=== PATIENT | male | born 1980 | race African-American/Black ===

== ENCOUNTER 2019-11-19 01:45 | Day surgery (SDC) | payer OTHER, SELFPAY ==
[2019-11-05 10:39] VITALS: BMI 22.3
--- NOTE | 2019-11-18 12:42 | HP_ITS ---
DATE OF SERVICE: 11/19/2019 PREOPERATIVE DIAGNOSIS: Right ulnar neuropathy at the elbow. HISTORY: This is a 38-year-old male with complaints in the right upper extremity only that he has had symptoms for over 3 months. It involves tingling in the ulnar digit and half that has gradually progressed to numbness. He says it is constant now. He may have a burning pain along the medial forearm extending toward his elbow. He drops things. 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 His hand cramps from time to time. He has trouble cutting his hair. 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 A nerve conduction test was done on September 23, 2019. This indicates right ulnar neuropathy at the elbow. We elected to proceed with surgery for this. He understands the risks are those of anesthesia, bruising, infection, dehiscence, slow or failed recovery of premorbid condition, focal numbness, and possible need for recurrent surgery. He would like to proceed with this. MEDICATIONS: Currently takes some Advil as his only medication. ALLERGIES: HE LISTS NO ALLERGIES TO MEDICATION. PAST SURGICAL HISTORY: He has had no prior surgeries. He does not see another specialist. He is a nonsmoker. REVIEW OF SYSTEMS: Indicates he has some arthritis, pain, and glaucoma. FAMILY HISTORY: Noncontributory. SOCIAL HISTORY: Lives in [place]. Does not list employment. He is a patient of [facility]. PHYSICAL EXAMINATION: GENERAL: He is alert, cooperative adult male. VITAL SIGNS: He is 5'11 , 158 pounds, in no distress. HEENT: Unremarkable. CHEST: Clear to auscultation. HEART: Regular rate and rhythm by palpation. ABDOMEN: Soft, nontender. EXTREMITY: Exam reveals findings only in the right side, which reveal Tinel's at the elbow with very muscular condition in that region. Also thenar wasting on the right and Tinel's at the wrist. He has no trouble flexing his right thumb across the palm and they mention thenar wasting. ASSESSMENT: Right cubital tunnel syndrome. PLAN: Right ulnar neuroplasty at the elbow under MAC anesthetic. D I MT: Lila
[2019-11-19] MEDS: LACTATED RINGERS 1,000 ML 30 ML IV CONT ×2 (07:05→08:45)
--- NOTE | 2019-11-19 07:07 | WPDANESEPPF ---
Anes - Initial Pre Proc Eval Procedure: Operation Date: 11/19/19 07:30 Proposed Procedures p Right Ulnar Neuroplasty - Gerald Carroll MD Date/Time: 11/19/19 07:07 Surgeon: Gerald Carroll MD Pre Op Diagnosis: Right Ulnar Neuropathy Patient Data Age: 38 Gender: M Height: 5 ft 11 in Weight: 72.57 kg Allergies Allergy/AdvReac Type Severity Reaction Status Date / Time No Known Allergies Allergy Verified 11/05/19 10:41 Home Medications Medication Instructions Recorded Confirmed Type cyanocobalamin (vitamin B-12) 1,000 mcg PO DAILY 11/05/19 11/05/19 History [Vitamin B-12] multivitamin 1 tablet PO DAILY 11/05/19 11/05/19 History Patient hx anesthesia problems: none Family hx anesthesia problems: none PMFSH Past Medical History Medical History (Updated 11/19/19 @ 07:07 by Magdaleno Mathias MD) Arthritis Family History Family History (Updated 04/11/19 @ 15:45 by DOCTOR UNKNOWN) Other Diabetes mellitus Family history of arthritis Hypertension Social History Social History Smoking status: Never smoker Alcohol intake: current Substance use: current Substance use type: marijuana Anes - Eval Final PreProcedure Day of Procedure 11/19/19 07:07 Patient weight: normal Heart: regular rate and rhythm Lungs: clear to auscultation Airway: Mallampati scale class II Neurological: alert and oriented Last oral intake: >/= 8 hours ASA classification: II Emergent: no Anesthetic plan: proceed Anesthesia type and monitoring: general GIVS and standard monitoring Informed Consent: The patient's anesthetic plan and its attendant risks and benefits were discussed with the patient/family/POA. Questions were solicited and answers provided to the satisfaction of the patient/family/POA.
--- NOTE | 2019-11-19 07:21 | WPDHPUPDATE1 ---
History and Physical Update Update Date/Time: 11/19/19 07:21 History and Physical has been reviewed, including an updated exam of the patient. There are NO changes in the patient's condition. Risks, benefits, and alternatives have been discussed and questions answered. Patient agrees to proceed with procedure.
[2019-11-19 07:26] VITALS: BP 103/62; PULSE 82; RESP 20; TEMP 36.9; O2SAT 100
[2019-11-19] MEDS: BACITRACIN OINTMENT 15 GM TUBE 1 APPLIC TOPICAL (07:54)
[2019-11-19] MEDS: LIDO 1%/EPINEPHRINE 1:100,000 20 ML VIAL INFILTRATE (07:54)
--- NOTE | 2019-11-19 08:42 | P.OPB_ITS ---
Procedure Note - Brief Procedure Note - Brief Date of procedure: 11/19/19 Pre-op diagnosis: Right Ulnar Neuropathy Post-op diagnosis: same Procedure performed: Right ulnar neuroplasty wtih subcutaneous transposition. Incidental excisional biopsy of osteochondral body, 7x5x 4 mm. Anesthesia: MAC Surgeon: Gerald Carroll MD Supervisor Fabrication: Kimberley Estimated blood loss (mL): 3 Tourniquet time (min): 50 Drains: No Packing: No Pathology: yes Complications: No immediate complications Condition: stable Disposition: same day
[2019-11-19 08:45] VITALS: BP 116/47; PULSE 84; RESP 16; O2SAT 100
--- NOTE | 2019-11-19 09:01 | PM.PROC ---
Procedure Note - Detailed Date of procedure: 11/19/19 Pre-op diagnosis: Right Ulnar Neuropathy Post-op diagnosis: same (Anterior subluxation of nerve. Osteochondral body.) Procedure performed: Right subcutaneous transposition of the ulnar nerve. Incidental removal of osteochondral body. Description of procedure: The patient's site of concern was marked in preop. He was rolled to the operative room placed supine on the operating table a time-out was held and confirmed he was given IV sedation extremity was prepped and draped in usual fashion. The marking was reconfirmed on his elbow and locally infiltrated with 1% lidocaine with epinephrine. The olecranon and the prominence opposite that were marked and the course of the ulnar nerve marked between those. The tourniquet was inflated to 250 mmHg. The elbow was flexed and supported on folded towels. The incision was made as marked and dissection was carried out between these 2 prominences over the course of the ulnar nerve. It was then that I discovered the medial epicondyle actually was about 5 cm proximal to the site marked. The marked site for medial epicondyle turned out to be an osteophyte approximately 5 x 7 x 4 mm. This indeed was smaller than the average medial epicondyle however this gentleman is very thin and long and it did not seem unusual initially. We eventually removed this osteochondral body and it was sent for pathology. The incision was extended proximally. Allowing dissection posterior to the medial epicondyle to identify the nerve a relatively normal position. The nerve had been identified as it entered the flexor muscle fascia and more distally but seemed to run at an odd angle at that point. The dissection continued as usual exposing the nerve over at least a 6 cm length. The area of most compression appeared to be just posterior to the true medial epicondyle as usual. The nerve readily subluxed out of its groove riding upon the medial epicondyle. With that we elected to transpose it. A fascial flap was developed off the medial epicondyle to support that. The nerve and some vascular structures were isolated and this tissue was moved anteriorly. It was held into position with 3-0 Monocryl sutures and a couple of sites which did not seem to compress upon the nerve. The nerve did not seem to be unduly compressed by passive motion of the elbow and we were satisfied by its new position. Multiple bleeding sites were coagulated on 20. The wound was closed with intradermal 3-0 Monocryl a cross hatching odonnell in a running intradermal 3-0 Monocryl to close the skin. The usual bandage was applied. No antibiotics were utilized for this case. The patient will be prescribed some hydrocodone 02/21/2025 for home use. Surgeon: Gerald Carroll MD
[2019-11-19 09:15] VITALS: BP 109/56; PULSE 82; RESP 16; O2SAT 100
[2019-11-19 09:35] VITALS: BP 109/70; PULSE 55; RESP 16
== END 2019-11-19 09:45 | disposition home or self-care (01) ==
PROVIDERS: PCP Emergency Medicine; Visit Provider Plastic Surgery
PROC: (CPT 64718; principal; 2019-11-19 07:30)
DX: G56.21 Lesion of ulnar nerve, right upper limb (principal); M25.721 Osteophyte, right elbow; M19.90 Unspecified osteoarthritis, unspecified site; H40.9 Unspecified glaucoma; F12.90 Cannabis use, unspecified, uncomplicated
CPT/HCPCS: 64718; 24110; 88307; A9270; J2250; J2704; J3010; J7120

== ENCOUNTER 2024-01-22 09:30 | Outpatient (RCR) | payer OTHER, SELFPAY ==
--- NOTE | 2023-11-19 14:13 | OPREHPOC ---
Outpatient Therapy Plan of Care This is a Multidisciplinary Plan of Care that may contain components documented by all disciplines (PT, OT, and ST.) PT Problem 1 PT Problem #1 Knowledge Deficit PT Goal 1 Goal 1* indep with HEP and instruction to others for how to assist him PT Problem 2 PT Problem #2 Pain PT Goal 1 Goal * pain in legs 5/10 at worst PT Problem 3 PT Problem #3 Impaired Functional Mobil PT Goal 1 Goal 1* pt transfer supine/sit indep 2* pt transfer w/c <> mat indep with sliding board PT Problem 4 PT Problem #4 Impaired Strength PT Goal 1 Goal increase strength of trunk, pt able to perform 1* pt sit at edge of mat, without UE support, unchallenged x 5 minutes 2* pt able to tolerate standing upright with the stander x 10 minute tolerance 3* 

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
--- NOTE | 2023-11-19 15:12 | PCPTNOTE ---
pt was 15 minutes late for PT eval appt.
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
--- NOTE | 2023-11-21 15:14 | OPREHPOC ---
Outpatient Therapy Plan of Care This is a Multidisciplinary Plan of Care that may contain components documented by all disciplines (PT, OT, and ST.) PT Problem 1 PT Problem #1 Knowledge Deficit PT Goal 1 Goal 1* indep with HEP and instruction to others for how to assist him PT Problem 2 PT Problem #2 Pain PT Goal 1 Goal * pain in legs 5/10 at worst PT Problem 3 PT Problem #3 Impaired Functional Mobil PT Goal 1 Goal 1* pt transfer supine/sit indep 2* pt transfer w/c <> mat indep with sliding board PT Problem 4 PT Problem #4 Impaired Strength PT Goal 1 Goal increase strength of trunk, pt able to perform 1* pt sit at edge of mat, without UE support, unchallenged x 5 minutes 2* pt able to tolerate standing upright with the stander x 10 minute tolerance 3* 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 Patient to be independent with instructed materials. Target Visit 10 OT Problem 2 OT Problem #2 Pain OT Goal 1 Goal 1. Patient to be independent with non-medication pain management. Target Visit 10 OT Problem 3 OT Problem #3 Impaired Strength OT Goal 1 Goal 1. Increase (R) shoulder strength to 3+/5 in all directions. 2. Increase (R) marketing support specialist strength to 80 lbs. Target Visit 10
--- NOTE | 2023-12-18 10:49 | OPREHPOC ---
Outpatient Therapy Plan of Care This is a Multidisciplinary Plan of Care that may contain components documented by all disciplines (PT, OT, and ST.) PT Problem 1 PT Problem #1 Knowledge Deficit PT Goal 1 Goal 1* indep with HEP and instruction to others for how to assist him Progress Met Comment 12-18-23 progress met goal; continue towards goal to progress education PT Problem 2 PT Problem #2 Pain PT Goal 1 Goal * pain in legs 5/10 at worst Progress Not Met Comment 12-18-23 progress goal not met, pain 6/10 at worst continue towards goal PT Problem 3 PT Problem #3 Impaired Functional Mobil PT Goal 1 Goal 1* pt transfer supine/sit indep 2* pt transfer w/c <> mat indep with sliding board Progress Partially Met Comment 12-18-23 progress met goal 2 continue towards goals PT Problem 4 PT Problem #4 Impaired Strength PT Goal 1 Goal increase strength of trunk, pt able to perform 1* pt sit at edge of mat, without UE support, unchallenged x 5 minutes 2* pt able to tolerate standing upright with the stander x 10 minute tolerance 3* 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 Patient to be independent with instructed materials. Target Visit 10 OT Problem 2 OT Problem #2 Pain OT Goal 1 Goal 1. Patient to be independent with non-medication pain management. Target Visit 10
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
--- NOTE | 2023-12-18 10:56 | PCPTNOTE ---
pt was 10 minutes late for today's appt;
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
== END 2024-02-01 10:11 | disposition home or self-care (01) ==
LOC: ANHPT 09:30
PROVIDERS: PCP Emergency Medicine
DX: S24.15 Other incomplete lesions of thoracic spinal cord (principal); S32.019D Unspecified fracture of first lumbar vertebra, subsequent encounter for fracture with routine healing
CPT/HCPCS: 97110; 97112; 97161; 97165; 97530

== ENCOUNTER 2024-05-02 08:00 | Outpatient (RCR) | payer OTHER, SELFPAY ==
--- NOTE | 2024-02-13 14:53 | OPREHPOC ---
Outpatient Therapy Plan of Care This is a Multidisciplinary Plan of Care that may contain components documented by all disciplines (PT, OT, and ST.) PT Problem 1 PT Problem #1 Knowledge Deficit PT Goal 1 Goal Pt will demonstrate HEPs indep Target Visit 4 PT Problem 2 PT Problem #2 Pain PT Goal 1 Goal Pt will report reduced pain level to 3/10 at worst or during movement in order to perform UE mobility without discomfort. Target Visit 12 PT Problem 3 PT Problem #3 Impaired Range of Motion PT Goal 1 Goal Pt will demonstrate R shoulder WFL ROM (120? of forward elevation, 45? of extension, 130? of abduction, 115? of cross-body adduction, 60? of external rotation, and 100? of internal rotation) in order to perform ADLs indep. PT Problem 4 PT Problem #4 Impaired Strength PT Goal 1 Goal Pt will demonstrate 5/5 RUE strength grossly. Target Visit 12 PT Goal 2 Goal Pt will demonstrate 4/5 abdominal and trunk muscle strength to improve balance and stability Target Visit 12
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
--- NOTE | 2024-02-18 11:20 | PCPTNOTE ---
pt called to say that he was in a court hearing, unable to attend therapy session on this date.
--- NOTE | 2024-03-20 10:34 | PTOPPROG ---
Assessment and note entered by Frank Stevens Evaluation Information Assessment Status Progress Diagnosis right shoulder pain and immobility, s/p rotator cuff repair Onset 01/24/24 Subjective Information Pt. reports that he still has varying pain in the right shoulder. He states that he is lifting the right arm higher, but still notices stiffness with overhead activities. 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 He states that his goal remains to improve his shoulder strength and mobility. Assessment PT Clinical Summary Pt. has demonstrated progress in regards to strength and mobility at the right shoulder. Despite progress he continues to be limited in strength and ROM. 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 Plan of Care Interventions Hot Pack/Cold Pack,Manual Therapy,Neuro Re- education,Patient/Caregiver Educati,Therapeutic Activities,Therapeutic Exercise PT Services Indicated Yes Treatment Frequency and Continue treatment 2x/week x 10 visits Duration These treatments will address the objective and functional deficits as defined above. The patient will be advanced safely and appropriately in order for the patient to progress towards his/her prior level of function. Additional exercises will be introduced and as well as a comprehensive home exercise program upon discharge, if needed, ?to ensure carryover of functional gains achieved in the clinic. This treatment plan has been reviewed and agreement upon by the patient.
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
[2024-04-29 08:00] VITALS: BP_SYST 145
--- NOTE | 2024-04-29 09:42 | OPREHPOC ---
Outpatient Therapy Plan of Care This is a Multidisciplinary Plan of Care that may contain components documented by all disciplines (PT, OT, and ST.) PT Problem 1 PT Problem #1 Knowledge Deficit PT Goal 1 Goal Pt will demonstrate HEPs indep Target Visit 4 Progress Met PT Goal 2 Goal 04-29-24: EVAL paraplegia/progress R shoulder goal met continue to progress HEP and education Target Visit 30 PT Problem 2 PT Problem #2 Pain PT Goal 1 Goal Pt will report reduced pain level to 3/10 at worst or during movement in order to perform UE mobility without discomfort. Target Visit 20 Progress Not Met PT Goal 2 Goal 04-29-24: EVAL paraplegia/progress R shoulder goal not met continue towards goal-- ADD: monitor LE pain/spasms as progress treatment Target Visit 30 PT Problem 3 PT Problem #3 Impaired Range of Motion PT Goal 1 Goal Pt will demonstrate R shoulder WFL ROM (120? of forward elevation, 45? of extension, 130? of abduction, 115? of cross-body adduction, 60? of external rotation, and 100? of internal rotation) in order to perform ADLs indep. Target Visit 20 Progress Not Met Comment Met passively, but not actively PT Goal 2 Goal 04-29-24: EVAL paraplegia/progress R shoulder goal partially met--passive motion shoulder NEW GOAL: 1* R shoulder ER- reach towards back of head, palm to back of head Target Visit 30 PT Problem 4 PT Problem #4 Impaired Strength PT Goal 1 Goal Pt will demonstrate 5/5 RUE strength grossly. Target Visit 20 PT Goal 2 Goal Pt will demonstrate 4/5 abdominal and trunk muscle strength to improve balance and stability Target Visit 20 Progress Partially Met Comment
--- NOTE | 2024-04-29 09:42 | PTOPEVAL1 ---
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; saw shoulder dr few weeks ago--said no restrictions, keep doing therapy and was surprised at how well I was doing; have been doing all the arm exercises; to get new wheelchair by the end of the month: to have electronic larger front wheels to be able to go outside and also able to stand up with it; want to keep up with therapy for shoulder and legs 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; 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/ 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 to 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 child PAIN: R shoulder: range in the week: 0-5/10: ache pinch at top of shoulder increase pain: use of R arm, hold arm up and rotate decrease pain: tylenol, aleve, rest,heat have not been using ice- instruct on PRN use of ice, especially if swollen wake up from sleeping 3-4 x/night due to shoulder pain Reported Pain Level Pain Score 4: Self Report Additional Pain Score Comments PAIN: R shoulder: range in the week: 0-5/10: ache pinch at top of shoulder increase pain: use of R arm, hold arm up and rotate decrease pain: tylenol, aleve, rest,heat have not been using ice- instruct on PRN use of ice, especially if swollen also have muscle spasms and tightness of hips Assessment PT Clinical Summary Vianey has received 20 PT sessions s/p R shoulder surgery. This is progress report for R shoulder and EVALUATION for new order--paraplegia. He had received treatment here for paraplegia prior to the shoulder surgery. R shoulder progress: pain has decreased from 6/10 to 0- 5/10; continues to have pain in shoulder with sleeping, awaken 3-4x/night; increase shoulder ROM and strength in all directions;
--- NOTE | 2024-05-05 12:02 | PCPTNOTE ---
This treatment is being continued on visit number [id number]. Please see documentation on both accounts to view progress. Completed interventions, outcomes, and problems have been marked as Inactive to facilitate the copying of the Care plan routine for recurring accounts.
== END 2024-05-05 11:02 | disposition home or self-care (01) ==
LOC: ANHPT 08:00
PROVIDERS: PCP Emergency Medicine; Visit Provider Orthopaedic Surgery Sports Medicine
DX: Z48.89 Encounter for other specified surgical aftercare (principal); M75.101 Unspecified rotator cuff tear or rupture of right shoulder, not specified as traumatic; Z98.890 Other specified postprocedural states
CPT/HCPCS: 97014; 97110; 97112; 97140; 97161; 97162; 97165; 97530; G0283

== ENCOUNTER 2024-07-29 08:00 | Outpatient (RCR) | payer OTHER, SELFPAY ==
[2024-05-05 11:02] VITALS: BP_SYST 145
--- NOTE | 2024-05-05 12:03 | PCPTNOTE ---
This treatment is being continued from visit number [id number]. Please see documentation on both accounts to view progress. Completed interventions, outcomes, and problems have been marked as Inactive to facilitate the copying of the Care plan routine for recurring accounts.
--- NOTE | 2024-06-12 09:50 | PTOPPROG ---
Assessment and note entered by Antonia Hurst, PT Progress Report Assessment Status Progress Diagnosis paraplegia G82.20; R rotator cuff tear M 75.101 Other ICD-10 Condition Codes ( paraplegia G82.20; R rotator cuff tear M 75.101 PT) Onset 01/24/24 Subjective Information have improved with strength, able to do more at home--wash dishes, shower without help, is cooking cleaning at home; using manual w/c; to get leg braces at [employer]---have been fitted by not yet have, not sure when will get them; saw shoulder and he is happy with how his shoulder is doing; see neuro in October; PAIN: range in the past week 0-02/28 R shoulder-- popping, clicking; tightness in both hips- spasms with extending hips and knees Assessment PT Clinical Summary Vianey has received 32 PT sessions. 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 He has been fitted for LE braces and is awaiting a new w/c with ability to stand with it. He remains very motivated, working at home on his exercises and during PT sessions. At home, he is more indep with self care and home activities. The goals were achieved except tall kneel position holding with 1 UE--requires bilateral UE support. Continue PT--progress activity and strength of LE's and R UE, to improve his mobility. Plan of Care Interventions Gait Training,Manual Therapy,Neuro Re-education, Patient/Caregiver Education,Therapeutic Activities, Therapeutic Exercise PT Services Indicated Yes Treatment Frequency and 2x/wk for 10 visits Duration These treatments will address the objective and functional deficits as defined above. The patient will be advanced safely and appropriately in order for the patient to progress towards his/her prior level of function. Additional exercises will be introduced and as well as a comprehensive home exercise program upon discharge, if needed, ?to ensure carryover of functional gains achieved in the clinic. This treatment plan has been reviewed and agreement upon by the patient.
--- NOTE | 2024-06-12 09:51 | OPREHPOC ---
Outpatient Therapy Plan of Care This is a Multidisciplinary Plan of Care that may contain components documented by all disciplines (PT, OT, and ST.) PT Problem 1 PT Problem #1 Knowledge Deficit PT Goal 1 Goal / Goal Update Pt will demonstrate HEPs indep Target Visit 4 Progress Met PT Goal 2 Goal / Goal Update 04-29-24: EVAL paraplegia/progress R shoulder goal met continue to progress HEP and education 06-12-24 progress met goals continue towards education goal TARGET 42 visits Target Visit 42 PT Problem 2 PT Problem #2 Pain PT Goal 1 Goal / Goal Update Pt will report reduced pain level to 3/10 at worst or during movement in order to perform UE mobility without discomfort. Target Visit 20 Progress Not Met PT Goal 2 Goal / Goal Update 04-29-24: EVAL paraplegia/progress R shoulder goal not met continue towards goal-- ADD: monitor LE pain/spasms as progress treatment 06-12-24 progress met goal continue towards goal of monitoring pain TARGET 42 visits Target Visit 42 PT Problem 3 PT Problem #3 Impaired Range of Motion PT Goal 1 Goal / Goal Update Pt will demonstrate R shoulder WFL ROM (120? of forward elevation, 45? of extension, 130? of abduction, 115? of cross-body adduction, 60? of external rotation, and 100? of internal rotation) in order to perform ADLs indep. Target Visit 20 Progress Not Met PT Goal 2 Goal / Goal Update 04-29-24: EVAL paraplegia/progress R shoulder goal partially met--passive motion shoulder NEW GOAL: 1* R shoulder ER- reach towards back of head, palm to back of head 06-12-24 progress
--- NOTE | 2024-07-17 09:36 | PTOPPROG ---
Assessment and note entered by [facility] Evaluation Information Assessment Status Progress Diagnosis paraplegia G82.20, R rotator cuff tear M75.101 Other ICD-10 Condition Codes ( paraplegia G82.20; R rotator cuff tear M 75.101 PT) Onset 01/24/24 Subjective Information Pt. reports that he is pleased with his progress. He notes that the right shoulder is getting stronger and he is noticing improved endurance. 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 He states that he still does not have the endurance to be able to hold the right arm in front of himself long enough to be able to do his job thoroughly. He has also noted that with use of the Lite Gait he is able to walk. He is noticing improved movements in the l.e., however still cannot stand without assist. He states that he is fearful of regression if therapy is discontinued. 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 Assessment PT Clinical Summary Mr. Aponte has attended a total of 39 skilled therapy sessions. In this time we have noted improved strength and mobility of the right u.e. He also demonstrates improved endurance with use of the Lite Gait system, as noted by ability to tolerate a further distance with gait training activities. He continues to present with 34% deficit according to the Quick D[employer]. 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 He continues to progress and has indications that he can return to his prior occupation with the correct adaptive equipment. Skilled PT sessions have also provided the pt. with the opportunity to initiate gait training procedures due to use of equipment that the pt. does not have access to at home. He remains motivated and demonstrates consistent attendance with his rehab. 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 endurance and strength. We will continue use of assistive equipment to stimulate standing endurance and continue to attempt gait training techniques, as well as to provide pressure relief. Goals this date adjusted to focus
--- NOTE | 2024-07-22 08:34 | PCPTNOTE ---
Pt NS due to confusion with dates.
--- NOTE | 2024-07-31 07:45 | PCPTNOTE ---
This treatment is being continued on visit number [id number]. Please see documentation on both accounts to view progress. Completed interventions, outcomes, and problems have been marked as Inactive to facilitate the copying of the Care plan routine for recurring accounts.
== END 2024-07-30 14:18 | disposition home or self-care (01) ==
LOC: ANHPT 08:00
PROVIDERS: PCP Emergency Medicine; Visit Provider Orthopaedic Surgery Sports Medicine
DX: M75.101 Unspecified rotator cuff tear or rupture of right shoulder, not specified as traumatic (principal); G82.20 Paraplegia, unspecified; Z48.89 Encounter for other specified surgical aftercare; Z98.890 Other specified postprocedural states
CPT/HCPCS: 97110; 97112; 97116; 97140; 97530

== ENCOUNTER 2024-08-21 09:30 | Outpatient (RCR) | payer OTHER, SELFPAY ==
[2024-07-30 14:18] VITALS: BP_SYST 145
--- NOTE | 2024-07-31 07:46 | PCPTNOTE ---
This treatment is being continued on visit number [id number]. Please see documentation on both accounts to view progress. Completed interventions, outcomes, and problems have been marked as Inactive to facilitate the copying of the Care plan routine for recurring accounts.
--- NOTE | 2024-08-21 16:27 | PTOPDC ---
Assessment and note entered by Yassine Pfeiffer, PT Evaluation Information Assessment Status Discharge Diagnosis paraplegia G82.20, R rotator cuff tear M75.101 Other ICD-10 Condition Codes ( paraplegia G82.20; R rotator cuff tear M 75.101 PT) Onset 01/24/24 Subjective Information Patient reports that he was finally custom fit for hi new comprehensive hip and leg brace last week. He was able to work with it a bit this week, but as of now the plan is to return to the [facility] to perform custom work with addition of new ambulatory brace. He will be staying there for approximately 1 week. He has been doing regular skin integument checks to ensure that brace is not rubbing at this time. He is excited about this new device and is very optimistic that he will be able to ambulate with modified independence in near future. Reported Pain Level Pain Score 0: Self Report Additional Pain Score Comments 10/31 shoulder pain Assessment PT Clinical Summary Mr. Aponte has made remarkable progress to this point with therapy. He has transitioned from bed transfer limitations to assisted standing to independent standing over the course of the last few months. With new abdominal/leg brace he shows continued potential to progress to modified independent standing and ambulation. Patient will be taking a transition to skilled rehab to ensure proper use and fitting of brace upon which the plan will be to return to skilled outpatient therapy to continue care. Plan of Care PT Services Indicated Yes
== END 2024-08-21 17:17 | disposition home or self-care (01) ==
LOC: ANHPT 09:30
PROVIDERS: PCP Emergency Medicine; Visit Provider Orthopaedic Surgery Sports Medicine
DX: M75.101 Unspecified rotator cuff tear or rupture of right shoulder, not specified as traumatic (principal); G82.20 Paraplegia, unspecified; Z48.89 Encounter for other specified surgical aftercare; Z98.890 Other specified postprocedural states
CPT/HCPCS: 97110; 97116; 97140; 97530

== ENCOUNTER 2024-12-17 08:15 | Outpatient (RCR) | payer OTHER, SELFPAY ==
--- NOTE | 2024-09-22 17:28 | OPREHPOC ---
Outpatient Therapy Plan of Care This is a Multidisciplinary Plan of Care that may contain components documented by all disciplines (PT, OT, and ST.) PT Problem 1 PT Problem #1 Knowledge Deficit PT Goal 1 Goal / Goal Update [place] with HEP PT Goal 1 Goal / Goal Update Patient will demonstrate ability to fully don and doff abdominal and leg orthotic for independent use and training Target Visit 10 PT Goal 2 Goal / Goal Update Patient will improve Tinetti score by 5 point with use of david UEs to transition to use of 2 wheeled walker Target Visit 10 PT Problem 3 PT Problem #3 Impaired Functional Mobil PT Goal 1 Goal / Goal Update Patient will demonstrate ability to transfer 20' with 2 wheeled walker and SBA from therapy to improve short range modified independence with ambulation Target Visit 10 PT Goal 2 Goal / Goal Update 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
--- NOTE | 2024-09-22 17:28 | PTOPEVAL1 ---
Assessment and note entered by Yassine Pfeiffer, PT Evaluation Information Assessment Status Evaluation Diagnosis G82.2 ICD-10 Condition Codes (PT) Difficulty Walking R26.2,Weakness R53.1 Subjective Information Reports that he was supposed to be going through inpatient stay for gait training in new prosthetic device. He has been trying to stay active in home and is worried if he lost a step in his rehab. As of now some pain with arm flexion and reaching behind head and feels that his shoulder is moving better but he is having trouble using it in combination with his standing device and brace. 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 Reported Pain Level Pain Score 3: Self Report Assessment PT Clinical Summary Patient presents with balance and transfer deficits with newly acquired trunk and leg orthotic. New bracing has given patient opportunity to continue to progress functional mobility and work towards modified independent gait training at this time. Patient was expected to spend time at [facility] for orthotic training but was denied by insurance per report. This has left him with continued need for training and functional improvement to improve transfers, gait, and work related function given his diagnosis of paraplegia limiting these activities. Continues to show lingering functional deficits in dominant shoulder which will need to be improved coupled with functional training of standing activity to return to wrok related duties. Plan of Care Interventions Gait Training,Manual Therapy,Neuro Re-education, Therapeutic Activities,Therapeutic Exercise PT Services Indicated Yes Treatment Frequency and 2x/week for 10 visits Duration These treatments will address the objective and functional deficits as defined above. The patient will be advanced safely and appropriately in order for the patient to progress towards his/her prior level of function. Additional exercises will be introduced and as well as a comprehensive home exercise program upon discharge, if needed, ?to ensure carryover of functional gains achieved in the clinic. This treatment plan has been reviewed and agreement upon by the patient.
--- NOTE | 2024-10-23 08:40 | PCPTNOTE ---
Pt no called no showed his appointment today.
--- NOTE | 2024-11-06 09:34 | PTOPEVAL1 ---
Assessment and note entered by Yassine Pfeiffer, PT Evaluation Information Assessment Status Progress Diagnosis G82.2 ICD-10 Condition Codes (PT) Difficulty Walking R26.2,Weakness R53.1 Subjective Information Reports that he is currently wearing his brace for about 2 hours at a time at home. He has been very motivated and has been trying to do it as frequently as possible. He was able to stand at the sink and wash dishes for the first time yesterday. Has been able to don and doff brace with modified independence including his shoes. He has been attempting more ambulation in home with 2 wheeled walker at this time. He has history of difficulty with locking out left knee in brace still at times. He gets a lot of fatigue through his shoulder with walking due to heavy use of arms and support. 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 He continues to rely very heavily on shoulders including surgically repaired shoulder leading to mild pain following functional activity. Patient gait speed and stability was analyzed today with use of both 6 and 2 minute walk test. Notable loss in gait speed noted between 2 indicating continued need for functional conditioning and neuromuscular facilitation of core for foot progression. Will continue to benefit from skilled therapy to address these established and updated goals. Plan of Care Interventions Gait Training,Manual Therapy,Neuro Re-education, Therapeutic Activities,Therapeutic Exercise PT Services Indicated Yes Treatment Frequency and 2x/week for 8 visits Duration These treatments will address the objective and functional deficits as defined above. The patient will be advanced safely and appropriately in order for the patient to progress towards his/her prior level of function. Additional exercises will be introduced and as well as a comprehensive home exercise program upon discharge, if needed, ?to ensure carryover of functional gains achieved in the clinic. This treatment plan has been reviewed and agreement upon by the patient.
--- NOTE | 2024-11-06 09:34 | OPREHPOC ---
Outpatient Therapy Plan of Care This is a Multidisciplinary Plan of Care that may contain components documented by all disciplines (PT, OT, and ST.) PT Problem 1 PT Problem #1 Knowledge Deficit PT Goal 1 Goal / Goal Update [place] with HEP Progress Met PT Goal 1 Goal / Goal Update Patient will demonstrate ability to fully don and doff abdominal and leg orthotic for independent use and training -With modified independence he is capable Target Visit 10 Progress Met PT Goal 2 Goal / Goal Update Patient will improve Tinetti score by 5 point with use of david UEs to transition to use of 2 wheeled walker Target Visit 18 Progress Partially Met PT Problem 3 PT Problem #3 Impaired Functional Mobility PT Goal 1 Goal / Goal Update Patient will demonstrate ability to transfer 20' with 2 wheeled walker and SBA from therapy to improve short range modified independence with ambulation Target Visit 10 Progress Met PT Goal 2 Goal / Goal Update Patient will demonstrate 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 Target Visit 18
--- NOTE | 2024-11-06 09:39 | PTOPPROG ---
Assessment and note entered by Yassine Pfeiffer, PT Evaluation Information Assessment Status Progress Diagnosis G82.2 ICD-10 Condition Codes (PT) Difficulty Walking R26.2,Weakness R53.1 Subjective Information Reports that he is currently wearing his brace for about 2 hours at a time at home. He has been very motivated and has been trying to do it as frequently as possible. He was able to stand at the sink and wash dishes for the first time yesterday. Has been able to don and doff brace with modified independence including his shoes. He has been attempting more ambulation in home with 2 wheeled walker at this time. He has history of difficulty with locking out left knee in brace still at times. He gets a lot of fatigue through his shoulder with walking due to heavy use of arms and support. Assessment PT Clinical Summary Patient has made phenomenal progress with use of total lower body brace and his transition towards the rn long term care goal of modified independence with transfer and gait. He continues to rely very heavily on shoulders including surgically repaired shoulder leading to mild pain following functional activity. Patient gait speed and stability was analyzed today with use of both 6 and 2 minute walk test. Notable loss in gait speed noted between 2 indicating continued need for functional conditioning and neuromuscular facilitation of core for foot progression. Will continue to benefit from skilled therapy to address these established and updated goals. Plan of Care Interventions Gait Training,Manual Therapy,Neuro Re-education, Therapeutic Activities,Therapeutic Exercise PT Services Indicated Yes Treatment Frequency and 2x/week for 10 visits Duration These treatments will address the objective and functional deficits as defined above. The patient will be advanced safely and appropriately in order for the patient to progress towards his/her prior level of function. Additional exercises will be introduced and as well as a comprehensive home exercise program upon discharge, if needed, ?to ensure carryover of functional gains achieved in the clinic. This treatment plan has been reviewed and agreement upon by the patient.
--- NOTE | 2024-12-04 13:39 | OPREHPOC ---
Outpatient Therapy Plan of Care This is a Multidisciplinary Plan of Care that may contain components documented by all disciplines (PT, OT, and ST.) PT Problem 1 PT Problem #1 Knowledge Deficit PT Goal 1 Goal / Goal Update [place] with HEP Progress Met PT Goal 1 Goal / Goal Update Patient will demonstrate ability to fully don and doff abdominal and leg orthotic for independent use and training -With modified independence he is capable Target Visit 10 Progress Met PT Goal 2 Goal / Goal Update Patient will improve Tinetti score by 5 point with use of david UEs to transition to use of 2 wheeled walker Target Visit 20 Progress Partially Met PT Problem 3 PT Problem #3 Impaired Functional Mobility PT Goal 1 Goal / Goal Update Patient will demonstrate ability to transfer 20' with 2 wheeled walker and SBA from therapy to improve short range modified independence with ambulation Target Visit 10 Progress Met PT Goal 2 Goal / Goal Update Patient will demonstrate ability to 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 Target Visit 24 Progress Partially Met
--- NOTE | 2024-12-04 13:39 | PTOPPROG ---
Assessment and note entered by Yassine Pfeiffer, PT Evaluation Information Assessment Status Progress Diagnosis G82.2 ICD-10 Condition Codes (PT) Difficulty Walking R26.2,Weakness R53.1 Subjective Information Reports that his brace was broken 2 weeks ago due to mechanical failure. He reports that it will be refitted to better conform to where he needs it physically a this time to provide better support in ambulation. Reports that he has 12 steps in his home that he has not been able to ascend since the accident. HE would very much like to work on stair navigation after brace is returned and refitted as he attempted this in one of his previous therapy sessions and was capable but with a lot of difficulty. 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 The sheers seem to give him the most trouble. Transfers have some a long way but he has really been focusing on his strength from low to high and high to low as he would like to better transfer into and out of vehicles and be able to load and unload his wheelchair. Assessment PT Clinical Summary Mr. Aponte has made exceptional progress in therapy based on diagnosis of paraplegia and has shown a lot of promise with progression once the addition of custom ambulation orthotic brace was implemented. Due to hardware failure, he is currently awaiting brace repair and modification which will likely alter his use and interaction with brace to allow him more freedom of movement and progression towards greater independence. 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 HE has not been able to access his second story of his house since the accident and we began implementation of stair training to work on allowing him to de this once updated brace is implemented. We will also be working toward returning to driving as patient has desire to self manage transfer and loading of wheelchair into vehicle. Overall will continue to show great progress with therapy as his track record indicates that he is compliant and has shown excellent progression to this point. Plan of Care Interventions Gait Training,Manual Therapy,Neuro Re-education, Therapeutic Activities,Therapeutic Exercise PT Services Indicated Yes Treatment Frequency and 2x/week for 10 visits Duration These treatments will address the objective and functional deficits as defined above. The patient will be advanced safely and appropriately in order for the patient to progress towards his/her prior level of function. Additional exercises will be introduced and as well as a comprehensive home exercise program upon discharge, if needed, ?to ensure carryover of functional gains achieved in the clinic. This treatment plan has been reviewed and agreement upon by the patient.
--- NOTE | 2024-12-22 07:50 | PCPTNOTE ---
This treatment is being continued on visit number [id number] Please see documentation on both accounts to view progress. Completed interventions, outcomes, and problems have been marked as Inactive to facilitate the copying of the Care plan routine for recurring accounts.
== END 2024-12-19 11:37 | disposition home or self-care (01) ==
LOC: ANHPT 08:15
PROVIDERS: PCP Emergency Medicine
DX: G82.20 Paraplegia, unspecified (principal)
CPT/HCPCS: 97110; 97116; 97140; 97161; 97530

== ENCOUNTER 2025-02-16 08:00 | Outpatient (RCR) | payer OTHER, SELFPAY ==
--- NOTE | 2024-12-22 07:49 | PCPTNOTE ---
This treatment is being continued from visit number [id number] Please see documentation on both accounts to view progress. Completed interventions, outcomes, and problems have been marked as Inactive to facilitate the copying of the Care plan routine for recurring accounts.
--- NOTE | 2025-01-06 16:16 | OPREHPOC ---
Outpatient Therapy Plan of Care This is a Multidisciplinary Plan of Care that may contain components documented by all disciplines (PT, OT, and ST.) PT Problem 1 PT Problem #1 Knowledge Deficit PT Goal 1 Goal / Goal Update [place] with HEP Progress Met PT Goal 1 Goal / Goal Update Patient will demonstrate ability to fully don and doff abdominal and leg orthotic for independent use and training -With modified independence he is capable Target Visit 10 Progress Met PT Goal 2 Goal / Goal Update Patient will improve Tinetti score by 5 point with use of david UEs to transition to use of 2 wheeled walker Target Visit 20 Progress Partially Met PT Problem 3 PT Problem #3 Impaired Functional Mobility PT Goal 1 Goal / Goal Update Patient will demonstrate ability to transfer 20' with 2 wheeled walker and SBA from therapy to improve short range modified independence with ambulation Target Visit 10 Progress Met PT Goal 2 Goal / Goal Update Patient will 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 Target Visit 24 Progress Partially Met
--- NOTE | 2025-01-06 16:17 | PTOPPROG ---
Assessment and note entered by Yassine Pfeiffer, PT Evaluation Information Assessment Status Progress Diagnosis G82.2 ICD-10 Condition Codes (PT) Difficulty Walking R26.2,Weakness R53.1 Subjective Information He had recent modifications last week to body brace. It required cable adjustments for postural control, repair of the hinge pin, and refitting of thigh supports. He reports that he is having a much easier time getting the brace on at this point due to this. He is able to improve his ability to lock in his hips for transfers. Continues to have difficulty with ambulation and is still adjusting to new brace modifications but he is hopeful that these will be senior living improvements that will assist with stair navigation in home and improve endurance and stability in public. Assessment PT Clinical Summary Patient has seen improvement in mobility and gait with some improvement in shoulder strength since last reassessment. Overall we have had some time through the reconstruction of his brace which has limited his availability for mobility but through therapy we have seen great improvement in his walk tests and transfers. He continues to need assistance with leg clearance over small steps but reported that he has been working on scooting at home to traverse stairs. Overall he has been working very hard in therapy and compliance at home has been significant. There is still room for continued improvement with guidance secondary to consistent need for brace modification to this point. It appears that we are in a good spot where his control is improved in brace and he is able to show improve stability and speed with foot progression. Plan of Care Interventions Gait Training,Manual Therapy,Neuro Re-education, Therapeutic Activities,Therapeutic Exercise PT Services Indicated Yes Treatment Frequency and 2x/week for 10 visits Duration These treatments will address the objective and functional deficits as defined above. The patient will be advanced safely and appropriately in order for the patient to progress towards his/her prior level of function. Additional exercises will be introduced and as well as a comprehensive home exercise program upon discharge, if needed, ?to ensure carryover of functional gains achieved in the clinic. This treatment plan has been reviewed and agreement upon by the patient.
--- NOTE | 2025-01-06 16:19 | OPREHPOC ---
Outpatient Therapy Plan of Care This is a Multidisciplinary Plan of Care that may contain components documented by all disciplines (PT, OT, and ST.) PT Problem 1 PT Problem #1 Knowledge Deficit PT Goal 1 Goal / Goal Update [place] with HEP Progress Met PT Goal 1 Goal / Goal Update Patient will demonstrate ability to fully don and doff abdominal and leg orthotic for independent use and training -With modified independence he is capable Target Visit 10 Progress Met PT Goal 2 Goal / Goal Update Patient will improve Tinetti score by 5 point with use of david UEs to transition to use of 2 wheeled walker Target Visit 28 Progress Partially Met PT Problem 3 PT Problem #3 Impaired Functional Mobility PT Goal 1 Goal / Goal Update Patient will demonstrate ability to transfer 20' with 2 wheeled walker and SBA from therapy to improve short range modified independence with ambulation Target Visit 10 Progress Met PT Goal 2 Goal / Goal Update Patient will 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 Patient will improve 2 minute walk test to 150' to improve gait speed with transitional reduction in fall risk and improved endurance for home ambulation and activity. 2. 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 Target Visit 28 Progress Partially Met
--- NOTE | 2025-01-29 13:06 | PCPTNOTE ---
No call no show, reason unknown. I have left 2 mssg with pt to call if she plans on attending her scheduled appts. She has had numerous NS and will be removed from schedule at this time. JEANNINES
--- NOTE | 2025-01-30 11:42 | OPREHPOC ---
Outpatient Therapy Plan of Care This is a Multidisciplinary Plan of Care that may contain components documented by all disciplines (PT, OT, and ST.) PT Problem 1 PT Problem #1 Knowledge Deficit PT Goal 1 Goal / Goal Update [place] with HEP Progress Met PT Goal 1 Goal / Goal Update Patient will demonstrate ability to fully don and doff abdominal and leg orthotic for independent use and training -With modified independence he is capable Target Visit 10 Progress Met PT Goal 2 Goal / Goal Update Patient will improve Tinetti score by 5 point with use of david UEs to transition to use of 2 wheeled walker -No improvement made this date. Continues to show need for dependence on brace, but stability improving with practice Target Visit 32 Progress Partially Met PT Problem 3 PT Problem #3 Impaired Functional Mobility PT Goal 1 Goal / Goal Update Patient will demonstrate ability to transfer 20' with 2 wheeled walker and SBA from therapy to improve short range modified independence with ambulation Target Visit 10 Progress Met PT Goal 2 Goal / Goal Update 1. 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 Patient will demonstrate ability to ambulate on uneven surface for 400' including traversing of curb for community ambulation Target Visit 32 Progress Partially Met PT Goal 1 Goal / Goal Update Patient will demonstrate ability to maintain standing activity for 5 minutes with use fo R UE and single hand support to perform work related duties -Heavy use of L UE for stability but accomplished Target Visit 28 Progress Met PT Goal 2 Goal / Goal Update 1. Patient will improve 2 minute walk test to 150' to improve gait speed with transitional reduction in fall risk and improved endurance for home ambulation and activity. 2. Improve 6 minute walk test to 350 feet to improve endurance for community ambulation and stability to reduce fall risk 01/29/25: Both significantly improved. Continues to fall mildly short of goals but has progressed with each progress note. 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 01/29/25-No increased noted this date: external rotation strength was improved indicating improved capsular stability Target Visit 32 Progress Partially Met
--- NOTE | 2025-01-30 11:42 | PTOPPROG ---
Assessment and note entered by Yassine Pfeiffer, PT Evaluation Information Assessment Status Progress Diagnosis G82.2 ICD-10 Condition Codes (PT) Difficulty Walking R26.2,Weakness R53.1 Subjective Information Patient reports that he has been working on transitioning into a gym program and has a friend that he is able to start going there with. He is still not consistent with it as he has only been able to go once. He reports that he still has a lot of personal goals and although he realizes that progress has been slow, he feels that without therapy he will see a significant regression in the mobility that he has made through the use and modification of his full body brace. He has been working on walking around the home exclusively with the walker and feels comfortable with self application of full leg/trunk prosthetic. Assessment PT Clinical Summary Patient saw improvement is ambulation distance both short and long range at this time in 6 and 2 minute walk test. Less reliance on UEs as both strength has improved and coordination with use of updated and refitted orthotic at this time. Continues to show some overhead weakness and fatigue in dominant shoulder stemming from history of rotator cuff repair. Overall patient progress has been slow but positive at this time. He has been motivated to try to take on more exercise in the community especially with upper body workout and we are working to transition him to that safely to promote halfway independence. Given the patients states of paraplegia versus the progress that we have seen functionally with him since initiation of therapy there is no reason at this time to believe that he will not continue to make progress. Emphasis will continue to be placed on improving functional strength of UEs in relation to transfer, gait, endurance, and self care to promote continued progress towards independent rehab activity and community ambulation. Plan of Care Interventions Gait Training,Manual Therapy,Neuro Re-education, Therapeutic Activities,Therapeutic Exercise PT Services Indicated Yes Treatment Frequency and 1-2x/week for 8 visits Duration These treatments will address the objective and functional deficits as defined above. The patient will be advanced safely and appropriately in order for the patient to progress towards his/her prior level of function. Additional exercises will be introduced and as well as a comprehensive home exercise program upon discharge, if needed, ?to ensure carryover of functional gains achieved in the clinic. This treatment plan has been reviewed and agreement upon by the patient.
--- NOTE | 2025-02-16 17:56 | PTOPPROG ---
Assessment and note entered by Yassine Pfeiffer, PT Evaluation Information Assessment Status Progress Diagnosis G82.2 ICD-10 Condition Codes (PT) Weakness R53.1 Subjective Information Patient reports that he was able to take a short walk through his subdivision with help from his nephew. He has noted improved foot progression and clearance, however momentum change and lateral motion is still very unstable and he feels he does not have his balance completely on uneven surfaces. Patient would like to continue therapy to continue to emphasize gait mobility and stabilization. Reports that he is having some discomfort in the left shoulder this date which feels that it attributed to his decrease in ambulation distance. He has been pushing himself at home but feels therapy is pivotal to his continued improvement to help with constant improvement of technique and adaptation towards more independence. Assessment PT Clinical Summary We showed a minor regression this session with ambulation distance and stability. Patient has been attempting home ambulation but has had some difficulty with uneven surfaces and access to assistance with regular walking. He has therefore not been as consistent with walking program but has been attempting more transfers in the home. Continues to show difficulty with turning in core stabilization with lower limb progression. He is able to maintain this in straight path walking on even surface, but shows difficulty on uneven surface especially with turning. Will continue to benefit form skilled therapy to address these deficits and with improved weather hopefully have access to community ambulation. Plan of Care Interventions Gait Training,Manual Therapy,Neuro Re-education, Therapeutic Activities,Therapeutic Exercise PT Services Indicated Yes Treatment Frequency and 1-2/x week for 8 visits Duration These treatments will address the objective and functional deficits as defined above. The patient will be advanced safely and appropriately in order for the patient to progress towards his/her prior level of function. Additional exercises will be introduced and as well as a comprehensive home exercise program upon discharge, if needed, ?to ensure carryover of functional gains achieved in the clinic. This treatment plan has been reviewed and agreement upon by the patient.
--- NOTE | 2025-04-23 08:57 | PTOPDC ---
Assessment and note entered by Yassine Pfeiffer, PT Evaluation Information Assessment Status Discharge - Pt Not Present Diagnosis G82.2 ICD-10 Condition Codes (PT) Weakness R53.1 Subjective Information Patient reports that he was able to take a short walk through his subdivision with help from his nephew. He has noted improved foot progression and clearance, however momentum change and lateral motion is still very unstable and he feels he does not have his balance completely on uneven surfaces. Patient would like to continue therapy to continue to emphasize gait mobility and stabilization. Reports that he is having some discomfort in the left shoulder this date which feels that it attributed to his decrease in ambulation distance. He has been pushing himself at home but feels therapy is pivotal to his continued improvement to help with constant improvement of technique and adaptation towards more independence. Assessment PT Clinical Summary Patient denied continuation by insurance at this time. Made remarkable progress with gait and mobility and patient demonstrated compliance and desire to continue. Unfortunately insurance disagreed and denied further visits. HEP and functional activity was discussed in great length with patient to continue in home with assistance. Will be discharged at this time. Plan of Care PT Services Indicated Yes
== END 2025-03-24 23:59 | disposition home or self-care (01) ==
LOC: ANHPT 08:00
PROVIDERS: PCP Emergency Medicine
DX: G82.20 Paraplegia, unspecified (principal)
CPT/HCPCS: 97110; 97116; 97140; 97530